=== PATIENT | male | born 1950 | race Caucasian/White ===

== ENCOUNTER → 2017-01-13 | Outpatient (CLI) | payer OTHER ==
[~2017-01-13] VITALS: Ht 177.8 cm; Wt 85.3 kg
[~2017-01-13] MED LIST: ASPIR 8181 MG PO; CADUET 5 MG-401 EACH PO; CELEBREX 200 M200 M1 PO; METHIMAZOLE5 MG PO; PLAVIX 75 MG TA75 M1 PO; TOPROL XL25 MG PO; TOVIAZ4 M1 PO; VIAGRA25 MG PO
--- NOTE | ~2017-01-13 | HPC ---
[facility] [address] [place] [address] PAIN MANAGEMENT CONSULTATION Name: SARAH PRATT [facility]: [facility] [id number] Admission: 01/13/17 Attend Phys: Mark Garcia DO Discharge: Date of : 48 Report #: [id number] THIS REPORT FOR: //name// CC: Anuel Garcia DATE OF SERVICE: 01/15/2017 The patient is a very pleasant 66-year-old gentleman seen in consultation at the request of Dr. Thornton for evaluation of pain, neck, left shoulder, arm with paresthesia going into the thumb and index finger. The patient notes symptoms began in June or July, got worse in August without antecedent trauma and overuse. He has done regular exercises, which seems to be helping some. EMG apparently showed a left C6 radiculopathy. He plays golf 3 times a week and does some band exercises, which are efficacious, but pain is problematic. He gets spontaneous dysesthesia and paresthesia into the neck, shoulder, arm radiating into the first 2 digits of his left hand. Describes as periodic, intermittent, momentary, cramping, tingling issues which he rates anywhere from 6-7 on a 0-10 visual analog scale. REVIEW OF SYSTEMS: Complete review of systems attached to chart was gone over with the patient. He is , does not smoke or drink alcohol to excess. History of coronary artery disease, status post endovascular stent in 2006 (LAD), does take aspirin and Plavix daily. Hypertension, treated with Cardura, metoprolol and Toviaz. Thyroid disease for which he has taken methimazole for some time. Does take Celebrex on a p.r.n. basis. He has had bilateral rotator cuff surgical repairs in the 3389-8005 area. Knee replacement in 2012 and the aforementioned coronary artery stent in 2006. He is retired from the pharmaceutical industry. He enjoys playing golf. Pain impact score is fairly nominal. PHYSICAL EXAMINATION: GENERAL: Reveals a 5 feet 10 inches, 181 pounds gentleman, BMI is 27 kilograms per meter squared. VITAL SIGNS: Blood pressure is 134/89, pulse 69, respirations of 14. NEUROLOGIC: Cranial nerves 2-12 are grossly intact. HEENT: Pupils equal, reactive to light and accommodation. Extraocular muscles are intact. NECK: Cervical range of motion is modestly limited. Does have a somewhat positive Lhermitte's. Thyroid is enlarged and somewhat nodular. HEART: Regular and rhythmical with a grade 2/6 systolic ejection murmur. LUNGS: Clear to auscultation. MUSCULOSKELETAL: Left biceps reflex is absent, it is 1/4 in the right. Brachioradialis reflex is 0-1 in the left, 1/4 in the right. Triceps reflexes [address] [address] PAIN MANAGEMENT CONSULTATION Name: SARAH PRATT Room #: [facility] [id number] Admission: 01/13/17 Attend Phys: Mark Garcia DO Discharge: Date of : 48 Report #: [id number] are symmetric. Biceps strength is modestly diminished on the left. He does have a cosmetic defect from a prior proximal right biceps head tear in the past. Again, status post bilateral shoulder surgeries. ABDOMEN: Unremarkable. NEUROLOGIC: Gait is tandem. Lower extremity strength is symmetric. DIAGNOSTIC STUDIES: There are no radiographic studies available for evaluation at this time, only the aforementioned EMG. ASSESSMENT: Symptomatic cervical radiculopathy by clinical exam, classic C6 radicular symptoms likely secondary to C5-C6 neural foraminal narrowing. RECOMMENDATIONS: Discussion with the patient today about therapeutic option. Given that symptoms are intermittent and mostly paresthesia, no weakness or significant pain, we recommend simply continued p.r.n. Celebrex. We did briefly talk about concern for routine use of any nonsteroidal anti-inflammatory medications, specifically BROOKS-2 agents in patients both on blood thinners as well as history of coronary artery disease. The patient understands risks and benefits of slight increased risk in coronary artery event and bleeding. I offered cervical epidural injection if symptoms become problematic, though after discussion with the patient, we have elected to simply proceed cautiously. I will be happy to see the patient as needed for consideration for cervical epidural injection under fluoroscopy if symptoms become problematic. Thank you for allowing me to participate in this patient's care. I will keep you abreast of his progress. <ELECTRONICALLY SIGNED> By: Mark Garcia DO 01/20/17 1606 [id number] Mark Garcia DO /nt
[2017-01-13 14:52] VITALS: BP 134/89
== END | disposition home or self-care (01) ==
LOC: PAIN 13:55
DX: M54.12 Radiculopathy, cervical region (principal); M48.02 Spinal stenosis, cervical region; Z98.890 Other specified postprocedural states; Z95.1 Presence of aortocoronary bypass graft

== ENCOUNTER → 2018-01-18 | Outpatient (CLI) | payer OTHER ==
[~2018-01-18] VITALS: Ht 177.8 cm; Wt 87.2 kg
--- NOTE | ~2018-01-18 | HPC ---
[facility] [place] [place] [address] PAIN MANAGEMENT CONSULTATION Name: SARAH PRATT Isaiah Room #: REG TANI Hang#: [id number] Admission: 01/18/18 Attend Phys: Mark Garcia DO Discharge: Date of : 48 Report #: [id number] THIS REPORT FOR: //name// CC: Anuel Garcia DATE OF SERVICE: 01/18/2018 HISTORY OF PRESENT ILLNESS: The patient is a very pleasant 67-year-old gentleman seen just about a year ago, 01/13/2017, diagnosed with symptomatic cervical radiculopathy. We elected conservative therapy at that time. The patient has been using Celebrex p.r.n. Returns to pain clinic today noting pain is becoming more problematic, paresthesia in the left greater than right arm, has neuropathic manifestation of pruritus in the palm. PHYSICAL EXAMINATION: Shows a pleasant 67-year-old gentleman, BMI is 27.6 kilograms per meter squared. Vital signs stable as noted in the EMR. Cervical range of motion is modestly limited. Positive Lhermitte's radiating to the left. Upper extremity strength is pretty good and again has paresthesia and pruritus in the left arm and hand. ASSESSMENT: Symptomatic cervical radiculopathy by clinical examination and history. The patient has been off Plavix for 7 days. RECOMMENDATIONS: Cervical epidural injection under fluoroscopy today, resume Plavix tonight. Follow up in 2-4 weeks for reevaluation. Consideration of repeat injection if indicated clinically. The patient will hold the Plavix for 7 days if he gets good incremental relief, but if pain symptoms continue to be problematic to the point that we may consider repeat epidural injection. PROCEDURE: Cervical epidural injection under fluoroscopy. PROCEDURE NOTE: After written and informed consent was obtained including risk of dural puncture, spinal cord trauma, paralysis and increased pain, the patient was taken to the fluoroscopy suite and placed in the prone position, with appropriate abdominal bolstering, neck was flexed, palms under the thighs. Skin was prepped with ChloraPrep. Sterile draping was applied. Skin wheal with 1% Xylocaine was raised. A 22-gauge 3-1/2 inch epidural Tuohy needle was placed via a midline approach at the C7-T1 interspace, advanced under biplanar fluoroscopy using continuous loss of resistance. With appropriate loss of resistance at the expected depth on lateral view, the glass loss of resistance syringe was disconnected. A low volume extension tubing was connected to the needle and a 5 mL syringe. Negative aspiration for cerebrospinal fluid or blood was noted. A 1 mL of Omnipaque was injected which showed spread within the epidural space on biplanar fluoroscopy. This was followed with 80 mg of triamcinolone plus 1 mL of 1.5% preservative Xylocaine. Needle was withdrawn to [facility] [address] [place] [address] PAIN MANAGEMENT CONSULTATION Name: SARAH PRATT Isaiah Room #: REG [facility] Hang#: [id number] Admission: 01/18/18 Attend Phys: Mark Garcia DO Discharge: Date of : 48 Report #: [id number] the interspinous ligament, 0.5 mL of Xylocaine was used to flush the needle. The needle was then completely withdrawn. The area was cleansed. Band-Aid was applied. The patient was allowed to move off the procedure table and ambulated to the recovery room, monitored for an appropriate period of time, discharged in good and stable condition. <ELECTRONICALLY SIGNED> By: Mark Garcia DO 01/19/18 0654 [id number] Mark Garcia DO /nt
[2018-01-18 08:50] VITALS: BP 154/84
== END | disposition home or self-care (01) ==
LOC: PAIN 06:43
DX: M54.12 Radiculopathy, cervical region (principal); Z68.27 Body mass index [BMI] 27.0-27.9, adult

== ENCOUNTER → 2018-02-01 | Outpatient (CLI) | payer OTHER ==
[~2018-02-01] VITALS: Ht 177.8 cm; Wt 84.9 kg
--- NOTE | ~2018-02-01 | HPC ---
[facility] [address] [place] [address] PAIN MANAGEMENT CONSULTATION Name: SARAH PRATT Isaiah Room #: REG TANI Lai.#: [id number] Admission: 02/01/18 Attend Phys: Mark Garcia DO Discharge: Date of : 48 Report #: [id number] THIS REPORT FOR: //name// CC: Anuel Garcia DATE OF SERVICE: 02/01/2018 The patient is a 67-year-old gentleman, seen for symptomatic cervical radiculopathy. He had a single cervical epidural injection in 12/2016. Symptoms recurred. I saw him last 01/10/2018. We did a single epidural injection at that time. Returns to pain clinic today, notes near 90% improvement of pain, but still has paresthesia in the left thumb and some cramping. Still a little bit pain exacerbated with sleeping on the left side. He has been off his Plavix for 7 days. He returns to pain clinic today. PHYSICAL EXAMINATION: Shows a 67-year-old gentleman, BMI is 26.9 kg per meter squared. Vital signs are generally stable. Cervical range of motion shows modestly positive Lhermitte's. Paresthesia going into the left thumb. Discussion with the patient today about therapeutic options. He does have a history of coronary artery disease, suggest he start using Celebrex on a more p.r.n. basis. We will repeat epidural injection under fluoroscopy today. Suggest he resume Plavix tonight. Follow up simply on an as needed basis. ASSESSMENT: Symptomatic cervical radiculopathy by clinical exam and history, good incremental improvement following single injection. The patient has been off Plavix for 7 days. We will repeat injection today and follow up as needed. PROCEDURE: Cervical epidural injection under fluoroscopy. PROCEDURE: Cervical epidural steroid injection under fluoroscopy. PROCEDURE NOTE: After written and informed consent was obtained including risk of dural puncture, spinal cord trauma, paralysis and increased pain, the patient was taken to the fluoroscopy suite and placed in the prone position, with appropriate abdominal bolstering, neck was flexed, palms under the thighs. Skin was prepped with ChloraPrep. Sterile draping was applied. Skin wheal with 1% Xylocaine was raised. A 22-gauge 3-1/2 inch epidural Tuohy needle was placed via a midline approach at the C7-T1 interspace, advanced under biplanar fluoroscopy using continuous loss of resistance. With appropriate loss of resistance at the expected depth on lateral view, the glass loss of resistance syringe was disconnected. A low volume extension tubing was connected to the needle and a 5 mL syringe. Negative aspiration for cerebrospinal fluid or blood [address] [address] PAIN MANAGEMENT CONSULTATION Name: ROXANA PRATTRA Colon Room #: REG TANI Mauricio#: [id number] Admission: 02/01/18 Attend Phys: Mark Garcia DO Discharge: Date of : 46 Report #: [id number] was noted. A 1 mL of Omnipaque was injected which showed spread within the epidural space on biplanar fluoroscopy. This was followed with 80 mg of triamcinolone plus 1 mL of 1.5% preservative Xylocaine. Needle was withdrawn to the interspinous ligament, 0.5 mL of Xylocaine was used to flush the needle. The needle was then completely withdrawn. The area was cleansed. Band-Aid was applied. The patient was allowed to move off the procedure table and ambulated to the recovery room, monitored for an appropriate period of time, discharged in good and stable condition. <ELECTRONICALLY SIGNED> By: Mark Garcia DO 02/02/18 0829 [id number] 1836 Mark Garcia DO /nt
[2018-02-01 08:42] VITALS: BP 152/75
== END | disposition home or self-care (01) ==
LOC: PAIN 08:22
DX: M54.12 Radiculopathy, cervical region (principal)

== ENCOUNTER → 2020-01-01 | Outpatient (CLI) | payer OTHER ==
[~2020-01-01] VITALS: Ht 175.3 cm; Wt 84.9 kg
[~2020-01-01] MED LIST changes: +FISH OIL 1,001000 M2 PO
[2020-01-01 09:44] VITALS: BP 141/76
--- NOTE | 2020-01-01 09:58 | NUR ---
Pain Clinic Assessment: 1. History of Osteoarthritis: SHOULDERS History of Rheumatoid Arthritis: NONE 2. Height: 5 ft. 9 in. 175.3 cm. Weight: 187.2 lb. oz. 84.913 kg. Patient's BMI: 27.6 3. Vital Signs: BP: 141/76 Pulse: 69 Resp: 16 Temp: 02 Sat: 98 ECG Mon: 4. Pain Intensity: 8 5. Fall Risk: Dizziness: N Needs help standing or walking: N Fallen in the last 3 months: N Fall risk comments: 6. Patient on Blood Thinner: PLAVIX 7. History of Hypertension: Y 8. Opioid Therapy greater than 6 weeks: N Opiate Contract Signed: 9. Risk Assessment Tool Provided: 10. Functional Assessment Tool: 11. Recreational Drug Use: Never Drug Type: Tobacco Use: Never Smoker Tobacco Type: Amount or Packs/day: How Many Years: Alcohol Use: Yes Frequency: Quant:
--- NOTE | 2020-01-14 15:16 | HPC ---
[facility] [place] [place] [address] PAIN MANAGEMENT CONSULTATION Name: SARAH PRATT Room #: REG [facility].#: [id number] Admission: 01/01/20 Attend Phys: Sheela Torres MD Discharge: Date of : 48 Report #: [id number] THIS REPORT FOR: cc: Anuel Thornton MD,Anuel Torres,Sheela Youngblood MD ~ CC: Sheela Thornton DATE OF SERVICE: 01/01/2020 CHIEF COMPLAINT: Return of neck pain. HISTORY: The patient is a 69-year-old gentleman who has returned to the pain clinic. He suffers from cervical radiculopathy. He has undergone cervical epidural steroid injection in the past. These have proven beneficial. He returns today because of pain, which has now started to increase. It causes numbness and tingling down his left arm. He notes that last year it started to become more frequent. Now, it has built in intensity and frequency. Notes that the pain is worse when he moves his neck to the right. He also suffers from carpal tunnel syndrome. He does like to golf. He also likes to participate in gardening. He rates his pain as an 8/10 at this point. ALLERGIES: No known drug allergies. MEDICATIONS: Fish oil 1000 mg, Viagra 25 mg p.r.n., Celebrex 200 mg, aspirin 81 mg chewable, methimazole 2.5 mg, Plavix 75 mg, metoprolol XL 25 mg, and Caduet 5/40 tablets. PAST MEDICAL HISTORY: 1. Cervical radiculopathy. 2. Hypertension. 3. Hypercholesterolemia. 4. Coronary artery disease. SOCIAL HISTORY: He is a retired security system sales consultant person. Continues to enjoy golf. PAIN CLINIC ASSESSMENT AND PQRS: 1. History of osteoarthritis involving his shoulders. Has limitation in movement of his right shoulder. He would not raise greater than about 45 degrees abduction. Height 5 feet 9 inches, weight 187 pounds, BMI is 27. 2. Vital signs: Blood pressure 141/76, pulse 69, respiratory rate 16, room air saturation is 98%. 3. Pain intensity 8/10. 4. Fall history: The patient has not fallen in the last [address] [place] [id number] PAIN MANAGEMENT CONSULTATION Name: SARAH PRATT Isaiah Room #: REG [facility].#: [id number] Admission: 01/01/20 Attend Phys: Sheela Torres MD Discharge: Date of : 46 Report #: [id number] 5. Blood thinner. The patient is on Plavix. 6. Hypertension. 7. Opioid therapy. The patient is not on an opioid regimen. 8. Risk assessment tool, low for opioid use. 9. Functional assessment tool, . 10. Recreational drug use. The patient denies. 11. Tobacco: The patient denies. 12. Alcohol: The patient occasionally drinks alcoholic beverages. PHYSICAL EXAMINATION: GENERAL: The patient is a well-developed, well-nourished white male. Appears his stated age. He is alert and oriented x 3. His affect is appropriate. Speech is fluent. HEENT: Normocephalic, atraumatic. Extraocular eye muscles intact. Sclerae nonicteric. Mucous membranes are moist. The patient is wearing a mask. HEART: Regular. ABDOMEN: Nontender. EXTREMITIES: Upper extremity muscle strength in the left is 5-/5 for the left side with good range of motion. The patient is unable to raise his left arm greater than 45 degrees away from his body. 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 Does have a cosmetic defect from prior surgery on the right biceps. He had just torn in the past. Status post bilateral shoulder surgeries. Lower extremity muscle strength judged to be 5/5. IMPRESSION: The patient with symptomatic cervical radiculopathy with C6, C5 symptomatology. RECOMMENDATIONS: We discussed the treatment options with the patient. At this juncture, he is on Plavix. The patient will stop his Plavix. After stopping the Plavix, he will return to the Pain Clinic for an epidural steroid injection. These have proven beneficial in the past. A model was used to indicate the area of probable pathology. Questions were sought and answered. <ELECTRONICALLY SIGNED> By: Sheela Torres MD 01/14/20 1516 [id number] Sheela Torres MD /nt
== END ==
LOC: PAIN 06:44
PROVIDERS: ATTEND Anesthesiology Pain Medicine
DX: M54.12 Radiculopathy, cervical region (principal); I10 Essential (primary) hypertension; E78.00 Pure hypercholesterolemia, unspecified; I25.10 Atherosclerotic heart disease of native coronary artery without angina pectoris; Z79.899 Other long term (current) drug therapy

== ENCOUNTER → 2020-01-10 | Outpatient (CLI) | payer OTHER ==
[~2020-01-10] VITALS: Ht 175.3 cm; Wt 85.5 kg
[2020-01-10 08:39] VITALS: BP 146/76
--- NOTE | 2020-01-10 08:48 | NUR ---
Pain Clinic Assessment: 1. History of Osteoarthritis: SHOULDERS History of Rheumatoid Arthritis: NONE 2. Height: 5 ft. 9 in. 175.3 cm. Weight: 188.4 lb. oz. 85.458 kg. Patient's BMI: 27.8 3. Vital Signs: BP: 146/76 Pulse: 65 Resp: 14 Temp: 02 Sat: 100 ECG Mon: 4. Pain Intensity: 6-7 5. Fall Risk: Dizziness: N Needs help standing or walking: N Fallen in the last 3 months: N Fall risk comments: 6. Patient on Blood Thinner: PLAVIX 7. History of Hypertension: Y 8. Opioid Therapy greater than 6 weeks: N Opiate Contract Signed: 9. Risk Assessment Tool Provided: 10. Functional Assessment Tool: 11. Recreational Drug Use: Never Drug Type: Tobacco Use: Never Smoker Tobacco Type: Amount or Packs/day: How Many Years: Alcohol Use: Yes Frequency: Quant:
--- NOTE | 2020-01-22 16:00 | HPC ---
[facility] [place] [address] PAIN MANAGEMENT CONSULTATION Name: SARAH PRATT Room #: REG [facility].#: [id number] Admission: 01/10/20 Attend Phys: Sheela Torres MD Discharge: Date of : 46 Report #: [id number] THIS REPORT FOR: cc: Anuel Thornton MD,Anuel Torres,Sheela Youngblood MD ~ CC: Sheela Thornton DATE OF SERVICE: 01/10/2020 CHIEF COMPLAINT: Here for a cervical epidural injection. HISTORY: The patient is a 69-year-old gentleman who has been seen in the pain clinic in the past because of cervical radiculopathy. Epidural steroid injections in the cervical area had proved beneficial. He noticed an increase in pain and discomfort with numbness and tingling involving his left arm. Pain intensity has increased. He likes to stay active. He engages in golf as well as in gardening. These activities have been more problematic because of this pain and discomfort. He has returned today for a cervical epidural steroid injection. ALLERGIES: No known drug allergies. CURRENT MEDICATIONS: Fish oil 1000 mg, Viagra 25 mg p.r.n., Celebrex 200 mg, aspirin 81 mg chewable, methimazole 2.5 mg, Plavix 75 mg, metoprolol XL 25 mg, caduet 5/40 mg tablets. PAIN CLINIC ASSESSMENT AND PQRS: 1. The patient has a history of osteoarthritis involving his shoulders. He has limitation in movement of his right shoulder, could not raise it above 45 degrees abduction. 2. Height 5 feet 9 inches, weight 188 pounds, BMI is 27.8. 3. Vital signs: Blood pressure 146/76, pulse 65, respiratory rate 14, room air saturation 100%. 4. Pain intensity, 6-7. 5. Fall history. The patient has not fallen in the last 3 months. 6. Blood thinner. The patient has stopped taking his Plavix. 7. History of hypertension. The patient is being treated for hypertension. 8. Opioids greater than 6 weeks. The patient received medication from his primary. 9. Risk assessment tool, reviewed. 10. Functional assessment tool, . 11. Recreational drug use. The patient denies. 12. Tobacco. The patient has never smoked. 13. Alcohol. The patient occasionally drinks alcoholic beverages. [facility] [address] [place] [address] PAIN MANAGEMENT CONSULTATION Name: SARAH PRATT [id number] Admission: 01/10/20 Attend Phys: Sheela Torres MD Discharge: Date of : 46 Report #: [id number] PHYSICAL EXAMINATION: GENERAL: The patient is a well-developed, well-nourished, black male. He appears his stated age. He is alert and oriented x 3. His affect is appropriate. Speech is fluent. HEENT: Normocephalic, atraumatic. Extraocular eye muscles intact. Sclerae are nonicteric. Mucous membranes are moist. The patient is wearing a mask. HEART: Regular rate. ABDOMEN: Nontender. EXTREMITIES: Upper extremity muscle strength judged to be 5/5 for the major muscle groups in the left. The patient is unable to raise his left side. The patient is unable to raise his right arm greater than 45 degrees from his body. 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 Does have a cosmetic defect from prior surgeries on the right biceps. Status post bilateral shoulder surgeries. Lower extremity strength judged to be 5/5 for the major muscle groups in the lower extremity. IMPRESSION: Cervical radiculopathy, C6-C7 symptomatology. RECOMMENDATIONS: We discussed treatment options with the patient. Risks and benefits of a cervical epidural steroid injection were discussed. Possible complications of the procedure, which could include but are not limited to infection, worsening of pain, no improvement in pain, nerve damage, bleeding were discussed. The patient elects to proceed. We reminded him that steroid injections can lower one's immune reaction. The patient is aware that COVID virus 19 is in the community. Should he become infected because of the lower immunity, he may have more difficulty with recovering. The patient elects to proceed. PROCEDURE NOTE: The patient was taken to the procedure area. He was then assisted in getting on the examination table. His neck was sterilely prepped with a Betadine solution. A pillow was placed under the shoulders to bolster and improve positioning. His back was sterilely prepped with a chlorhexidine solution and allowed to dry. A 0.25% bupivacaine was injected using a 25-gauge needle. A 17-gauge Tuohy with loss of resistance technique was then used to gain access to the epidural space. There was no CSF, heme or paresthesia. A total of 120 mg triamcinolone was injected. The patient's pain decreased from 6-7-0 at the time of discharge. Total of 17 seconds fluoroscopy time was used. We would like to thank you for letting us participate in his care. We hope he continues to improve. <ELECTRONICALLY SIGNED> By: Sheela Torres MD 01/22/20 1600 1714 0028 Sheela Torres MD /PMT
== END | disposition home or self-care (01) ==
LOC: PAIN 06:47
PROVIDERS: ATTEND Anesthesiology Pain Medicine
DX: M54.12 Radiculopathy, cervical region (principal); G89.29 Other chronic pain; Z79.899 Other long term (current) drug therapy

== ENCOUNTER → 2020-02-07 | Outpatient (CLI) | payer OTHER ==
[~2020-02-07] VITALS: Ht 177.8 cm; Wt 84.4 kg
[2020-02-07 09:00] VITALS: BP 155/76
--- NOTE | 2020-02-07 09:14 | NUR ---
Pain Clinic Assessment: 1. History of Osteoarthritis: SHOULDERS History of Rheumatoid Arthritis: NONE 2. Height: 5 ft. 10 in. 177.8 cm. Weight: 186.0 lb. oz. 84.369 kg. Patient's BMI: 26.7 3. Vital Signs: BP: 155/76 Pulse: 73 Resp: 16 Temp: 02 Sat: 95 ECG Mon: 4. Pain Intensity: 3 5. Fall Risk: Dizziness: N Needs help standing or walking: N Fallen in the last 3 months: N Fall risk comments: 6. Patient on Blood Thinner: PLAVIX 7. History of Hypertension: Y 8. Opioid Therapy greater than 6 weeks: N Opiate Contract Signed: 9. Risk Assessment Tool Provided: low-0 10. Functional Assessment Tool: 11. Recreational Drug Use: Never Drug Type: Tobacco Use: Never Smoker Tobacco Type: Amount or Packs/day: How Many Years: Alcohol Use: Yes Frequency: Quant:
--- NOTE | 2020-03-10 08:23 | HPC ---
[facility] [place] [address] PAIN MANAGEMENT CONSULTATION Name: SARAH PRATT Room #: [facility]#: [id number] Admission: 02/07/20 Attend Phys: Sheela Torres MD Discharge: Date of : 46 Report #: [id number] THIS REPORT FOR: cc: Anuel Thornton MD,Anuel Torres,Sheela Youngblood MD ~ CC: Sheela Thornton MD DATE OF SERVICE: 02/07/2020 CHIEF COMPLAINT: Pain in the left wrist. HISTORY: The patient is a 69-year-old gentleman who has been seen in the Pain Clinic because of cervical radiculopathy. He underwent a cervical epidural steroid injection. He has noted an improvement in his shoulder pain. He feels that that has improved his quality of life. He does like to play golf. He is not having the "shocking waves that have radiated down into his neck and arm." He has returned today with the hopes of undergoing a treatment for his left carpal tunnel pain and discomfort. He notes that the pain is worse with certain activities. It can be problematic with golfing. He notes some discomfort at night. He has been wearing a brace on his wrist to help decrease the pain. ALLERGIES: No known drug allergies. CURRENT MEDICATIONS: Fish oil 1000 mg, Viagra 25 mg, Celebrex 200 mg, aspirin 81 mg, methimazole 25 mg, Plavix has been stopped 75 mg, metoprolol XL 25 mg, Caduet 5/40 mg. PAIN CLINIC ASSESSMENT/PQRS: 1. The patient has a history of osteoarthritis involving his shoulders. He has had some limitations in movement in his right shoulder. He cannot raise it above 45 degrees in abduction. 2. Height 5 feet 9 inches, 184 pounds, BMI is 26.4. 3. Vital signs: Blood pressure 150/70, pulse 68, respiratory rate 14, room air saturation 98%. 4. Pain intensity, 09/30. 5. Fall history: The patient has not fallen in the last 3 months. 6. Blood thinner. The patient has stopped taking his Plavix. 7. History of hypertension. The patient is being treated for hypertension. 8. Opioids greater than 6 weeks. The patient is not on opioid regimen. 9. Risk assessment tool, low for opioid use. 10. Functional assessment tool, . 11. Recreational drugs. The patient denies. 12. Tobacco: [place] [address] PAIN MANAGEMENT CONSULTATION Name: SARAH PRATT Room #: [facility]#: [id number] Admission: 02/07/20 Attend Phys: Sheela Torres MD Discharge: Date of : 46 Report #: [id number] 13. Alcohol: The patient occasionally drinks alcoholic beverages. PHYSICAL EXAMINATION: GENERAL: The patient is a well-developed, well-nourished black male, appears of [place] descent. Speech is fluent. HEENT: Normocephalic, atraumatic. Extraocular eye muscles intact. Sclerae nonicteric. Mucous membranes are moist. The patient is wearing a mask. LUNGS: Clear. HEART: Regular rate. ABDOMEN: Nontender. MUSCULOSKELETAL: Upper extremity muscle strength is judged to be 5-/5 for the major muscle groups in the upper extremity with some discomfort in the left side. The patient is unable to raise his right arm greater than 45 degrees of abduction. 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 Does have some pain in the area on the right side involving his hand. Has pain in the left carpal tunnel area on the left. Flexion and extension of the wrist exacerbate his pain and discomfort. IMPRESSION: 1. Left carpal tunnel syndrome. 2. Right carpal tunnel syndrome. 3. History of cervical radicular pain improved after the cervical epidural steroid injection. RECOMMENDATIONS: We discussed treatment options with the patient. Risks and benefits of an injection in the left wrist area for carpal tunnel. Pain was discussed. Possible complications include nerve damage, bleeding, worsening of pain, no improvement in pain, infection, and the patient elects to proceed. PROCEDURE NOTE: The patient was taken to the procedure area. He was then seated at the examination table. His left hand was extended. He was sterilely prepped with a ____ solution and allowed to dry. The patient oppose his thumb and little finger. The palmaris longus was identified. At the area of the transverse carpal ligament, a skin wheal was placed. This area was anesthetized. A cold solution of ethyl chloride was used to further numb the area. A 25-gauge needle was then advanced into the area of the ligament. There were no paresthesias. A total of 1 mL of Celestone and 1 mL of 1% lidocaine preservative-free were injected. There were no complications. The patient remained in the Pain Clinic for an appropriate amount of time. He will follow up in the future as needed. He did notice slight amount of numbness at the time of discharge. This was reviewed and appeared to be decreasing at the time, the patient was discharged. He will call us if he has any concerns. [facility] [address] [place] [address] PAIN MANAGEMENT CONSULTATION Name: SARAH PRATT Room #: [facility].#: [id number] Admission: 02/07/20 Attend Phys: Sheela Torres MD Discharge: Date of : 46 Report #: [id number] We would like to thank you for letting us participate in his care. We hope he continues to improve. <ELECTRONICALLY SIGNED> By: Sheela Torres MD 03/10/20 08 [id number] Sheela Torres MD /nt
== END | disposition home or self-care (01) ==
LOC: PAIN 06:50
PROVIDERS: ATTEND Anesthesiology Pain Medicine
DX: G56.03 Carpal tunnel syndrome, bilateral upper limbs (principal); Z98.890 Other specified postprocedural states; Z79.899 Other long term (current) drug therapy

== ENCOUNTER → 2020-02-21 | Outpatient (CLI) | payer OTHER ==
[~2020-02-21] VITALS: Ht 177.8 cm; Wt 83.6 kg
[2020-02-21 08:04] VITALS: BP 151/76
--- NOTE | 2020-02-21 08:13 | NUR ---
Pain Clinic Assessment: 1. History of Osteoarthritis: SHOULDERS WRIST History of Rheumatoid Arthritis: Not Applicable 2. Height: 5 ft. 10 in. 177.8 cm. Weight: 184.2 lb. oz. 83.553 kg. Patient's BMI: 26.4 3. Vital Signs: BP: 151/76 Pulse: 67 Resp: 14 Temp: 02 Sat: 98 ECG Mon: 4. Pain Intensity: 0 5. Fall Risk: Dizziness: N Needs help standing or walking: N Fallen in the last 3 months: N Fall risk comments: 6. Patient on Blood Thinner: PLAVIX 7. History of Hypertension: Y 8. Opioid Therapy greater than 6 weeks: N Opiate Contract Signed: 9. Risk Assessment Tool Provided: low-0 10. Functional Assessment Tool: 11. Recreational Drug Use: Never Drug Type: Tobacco Use: Never Smoker Tobacco Type: Amount or Packs/day: How Many Years: Alcohol Use: Yes Frequency: Daily Quant: 3
--- NOTE | 2020-02-26 23:51 | HPC ---
[facility] [place] [address] PAIN MANAGEMENT CONSULTATION Name: SARAH PRATT Room #: [facility].#: [id number] Admission: 02/21/20 Attend Phys: Sheela Torres MD Discharge: Date of : 46 Report #: [id number] THIS REPORT FOR: cc: Anuel Thornton MD,Anuel Torres,Sheela Youngblood MD ~ CC: Sheela Thornton DATE OF SERVICE: 02/26/2020 CHIEF COMPLAINT: Pain in the right wrist. HISTORY: The patient is a 69-year-old gentleman who has been seen in the pain clinic because of right wrist pain. He has been suffering from carpal tunnel symptoms. He likes to engage in activities. He does golf. He performs gardening activities. He returns today indicating that his pain in the right wrist had increased. He would like to undergo an injection in the right carpal tunnel area to decrease the pain and discomfort, which he has been experiencing. The left wrist injection was helpful. He has noticed an improvement in pain and less discomfort. He still wears a brace at night to help decrease the pain and discomfort. ALLERGIES: No known drug allergies. CURRENT MEDICATIONS: Fish oil 1000 mg, Viagra 25 mg, Celebrex 200 mg, aspirin 81 mg, methimazole 2.5 mg, Plavix 75 mg, metoprolol XL 25 mg, Caduet 5/40 mg. PAIN CLINIC ASSESSMENT AND PQRS: 1. The patient has a history of osteoarthritis involving his shoulders. He has some limitations in movement in his right shoulder, cannot raise it above 45 degrees, abduction 2. Height 5 feet 9 inches, weight 184 pounds, BMI is 26.4. 3. Vital Signs: Blood pressure 151/76, pulse 67, respiratory rate 14, room air saturation 98%. 4. Pain intensity is 0. 5. Fall risk. The patient has not fallen in the last 3 months. 6. Blood thinner. The patient is on Plavix and has stopped taking this medication with the desire to undergo an injection. 7. History of hypertension. The patient is being treated for hypertension. 8. Opioids therapy greater than 6 weeks. 9. Risk assessment tool, low for opioid use. 10. Functional assessment tool . 11. Recreational drug use. The patient denies. 12. Tobacco: The patient denies. 13. Alcohol: The patient drinks about 3 alcoholic beverages daily. [facility] [address] [place] [address] PAIN MANAGEMENT CONSULTATION Name: SARAH PRATT Room #: [facility]#: [id number] Admission: 02/21/20 Attend Phys: Sheela Torres MD Discharge: Date of : 46 Report #: [id number] PHYSICAL EXAMINATION: GENERAL: The patient is a well-developed, well-nourished black gentleman. He is alert and oriented x 3. His affect is appropriate. Speech is fluent. HEENT: Normocephalic, atraumatic. Extraocular eye muscles intact. Sclerae nonicteric. Mucous membranes are moist. The patient is wearing a mask. ABDOMEN: Nontender. MUSCULOSKELETAL: Upper extremity muscle strength judged to be 5/5 for the major muscle groups on the left side. The patient is unable to raise his right arm greater than 45 degrees of abduction. 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 Does have some pain in the area of the carpal tunnel area. Certain movements with flexion and extension of the wrist can exacerbate his pain and discomfort. IMPRESSION: 1. Right carpal tunnel pain. 2. History of cervical radicular pain. RECOMMENDATIONS: We discussed treatment options with the patient. Risks and benefits of an injection of local anesthetic and steroid were discussed. Possible complications of the procedure could include infection, worsening of pain, nerve damage, bleeding, and the patient elects to proceed. PROCEDURE NOTE: The patient was taken to the procedure area. The patient's right hand was extended. It was sterilely prepped with a Betadine solution and allowed to dry. The patient oppose the thumb and little finger. The palmaris longus was identified. At the area of the transverse carpal ligament a skin wheal was placed. This area had been sterilely prepped with a chlorhexidine solution and allowed to dry. A 27-gauge needle was then advanced into this area. No trauma / harm to the median nerve noted. The patient had no paresthesias. A total of 1 mL Celestone and 1% lidocaine preservative-free were injected. The patient had no complaints of pain or discomfort during the injection. The patient remained in the pain clinic for an appropriate amount of time. There were no complications. He will return to the Pain Clinic as needed. We would like to thank you for letting us participate in his care. We hope he continues to improve. <ELECTRONICALLY SIGNED> By: Sheela Torres MD 02/26/20 [id number] Sheela Torres MD /MILIND
== END | disposition home or self-care (01) ==
LOC: PAIN 06:52
PROVIDERS: ATTEND Anesthesiology Pain Medicine
DX: M25.531 Pain in right wrist (principal); G56.01 Carpal tunnel syndrome, right upper limb; Z98.890 Other specified postprocedural states; Z79.899 Other long term (current) drug therapy